=== PATIENT | female | born 1955 | race Caucasian/White ===

== ENCOUNTER → 2019-03-18 | Outpatient (CLI) | payer OTHER, BC ==
--- NOTE | 2019-03-19 15:08 | RAD ---
EXAM: PET/CT SKULL BASE TO MID THIGH. HISTORY: Lung nodule COMPARISON: None available. TECHNIQUE: CT was performed from the skull base through the mid thighs for the purposes of attenuation correction. 14.4 mCi F-18 fluorodeoxyglucose (FDG) was administered intravenously. After an uptake period, positron emission tomography was performed from the skull base through the mid thighs. The PET and CT data were fused and interpreted in combination a dedicated workstation. Blood glucose level was 92 mg/dL at the time of FDG administration. FINDINGS: A spiculated nodule in the right lower lobe measures 13 x 8 mm with maximum SUV 4.8. This is concerning for primary bronchogenic carcinoma. There is a 3 mm satellite nodule 1.8 cm anterior to the main nodule. A 2nd small nodule in the right upper lobe is somewhat linear and scarlike and measures 9 mm in greatest dimension. There is mild associated metabolism with maximum SUV 1.8. This favors benignity but is indeterminate. There is misregistration artifact throughout the abdomen and pelvis. There are no hypermetabolic mediastinal lymph nodes. There is no hypermetabolism suggestive of metastatic disease elsewhere. Hypermetabolism at the pharyngeal tonsils is somewhat asymmetric on the right greater than left. Maximum SUV is 5.4. Symmetric hypermetabolism at the larynx infiltrates maximum SUV 4.8 and likely reflects muscular activity during uptake. Additional CT findings include severe centrilobular emphysema. Calcified mediastinal lymph nodes are consistent with old granulomatous disease. There are atherosclerotic calcifications of the coronary arteries. There are calcified granulomas in the liver and spleen. IMPRESSION: 1. Hypermetabolic 13 mm right lower lobe nodule concerning for primary bronchogenic carcinoma. A 3 mm satellite nodule is 1.8 cm anterior to it. 2. A 9 mm nodule in the right apex demonstrates low-level metabolism and is indeterminate. Three-month follow-up is recommended. 3. No evidence of mediastinal or distant metastatic disease. 4. Asymmetric activity at the pharyngeal tonsils is likely inflammatory. Correlate with direct visualization to exclude a mucosal lesion. 5. Severe centrilobular emphysema.
== END | disposition home or self-care (01) ==
LOC: PETSC 09:00
PROVIDERS: ATTEND Internal Medicine Pulmonary Disease
DX: J43.2 Centrilobular emphysema (principal); R91.8 Other nonspecific abnormal finding of lung field; I25.10 Atherosclerotic heart disease of native coronary artery without angina pectoris
CPT/HCPCS: 78815; A9552

== ENCOUNTER → 2020-05-07 | Outpatient (CLI) | payer MEDICARE ==
[2020-05-07 20:08] LABS: RHEUMATOID FACTOR <10.0 IU/mL (0.0-13.9)
[2020-05-09 15:19] LABS: C ANCA <1:20 titer (Neg:<1:20); P ANCA <1:20 titer (Neg:<1:20)
[2020-05-09 20:08] LABS: ANA INTERP Negative (.)
== END ==
LOC: LAB 10:41
PROVIDERS: ATTEND Internal Medicine Pulmonary Disease
DX: R91.1 Solitary pulmonary nodule (principal)
CPT/HCPCS: 36415; 85651; 86038; 86256; 86431